=== PATIENT | female | born 1955 | race Caucasian/White ===

== ENCOUNTER 2022-04-30 15:22 | Inpatient (IN) ==
[2022-04-30] MEDS ORDERED: LORazepam 2 MG/1 ML VIAL ONE (15:37)
[2022-04-30] MEDS ORDERED: levETIRAcetam 1,500 MG in 0.9 % SODIUM CHLORIDE 100 ML IV STA (15:43)
[2022-04-30 15:58] LABS: iSTAT Creatinine 0.6 mg/dl (0.6-1.3); iSTAT Hemoglobin 12.9 g/dl (12.0-16.0); iSTAT Ionized Calcium 1.17 mmol/l (1.12-1.32); iSTAT Potassium 4.1 mmol/L (3.3-5.0)
[2022-04-30] MEDS ORDERED: SODIUM CHLORIDE 0.9% 1000ML 1,000 ML IV SCH (16:00)
[2022-04-30 16:27] LABS: Basophils # (auto) 0.01 K/uL (0-0.2); Basophils % (auto) 0.1 %; Eosinophils # (auto) 0.11 K/uL (0-0.5); Eosinophils % (auto) 1.5 %; Hematocrit (blood only) 39.7 % (37-47); Hemoglobin 13.3 g/dL (12.0-16.0); Immature Granulocytes # (auto) 0.03 K/uL (0.00-0.02); Immature Granulocytes % (auto) 0.4 %; Lymphocytes # (auto) 2.32 K/uL (1.2-3.4); Lymphocytes % (auto) 32.3 %; Mean Corpuscular Hemoglobin 33.8 pg (25-34); Mean Corpuscular Hgb Conc 33.5 g/dL (32-36); Mean Corpuscular Volume 100.8 fL (80-100); Mean Platelet Volume 9.7 fL (7.4-10.4); Monocytes # (auto) 0.56 K/uL (0.11-0.59); Monocytes % (auto) 7.8 %; Neutrophils # (auto) 4.15 K/uL (1.4-6.5); Neutrophils % (auto) 57.9 %; Platelet Count 224 K/uL (130-400); RDW Coefficient of Variation 13.2 % (11.5-14.5); RDW Standard Deviation 48.3 fL (36.4-46.3); Red Blood Count 3.94 M/uL (4.2-5.4); White Blood Count 7.18 K/uL (4.8-10.8)
--- NOTE | 2022-04-30 16:30 | CT Scan Report ---
CT head/brain wo con CLINICAL HISTORY: seizure, vp patient shunt, GBM resection Technique: Contiguous axial CT images of the head were acquired from the base of the skull to the guanako yenny without intravenous contrast administration. Images were viewed in brain, subdural and bone [facility]. Automated dose lowering techniques and/or adjustment according to patient size were utilized for this exam. Comparison: None available at the time of this dictation. Findings: The ventricles, basal cisterns, and cerebral sulci are normal. There is no acute intracranial hemorrh age or evidence of acute territorial infarction. Neither mass effect, shift of the midline structures , nor abnormal extra-axial fluid collections are shown. Postsurgical findings of glioblastoma resect ion are seen in the left frontal lobe with post craniotomy changes and encephalomalacia. A DOWEL SANDER OPERATOR shunt i s seen with the tip terminating in the left lateral ventricle. Imaged portions of the paranasal sinuses and mastoid air cells are clear. The orbits appear normal. There are no acute fractures of the calvaria or scalp swelling. Impression: No acute abnormality. No evidence of hydrocephalus in this patient with a DOWEL SANDER OPERATOR shunt in place. Postsurg ical changes of tumor resection are seen. ACT 112: Negative or not required by law. Electronically signed by: Chester Fontenot M.D. 04/30/2022 4:29 PM
[2022-04-30 16:31] LABS: Prothrombin Time 10.2 Seconds (9.0-12.0)
[2022-04-30 16:55] LABS: Alanine Aminotransferase 21 U/L (7-52); Albumin Globulin Ratio 1.5 (0.9-2); Albumin Level 4.1 gm/dl (3.4-5.0); Alkaline Phosphatase 64 U/L (34-104); Anion Gap 21 (3-11); Aspartate Aminotransferase 14 U/L (13-39); Bilirubin,Total 1.1 mg/dl (0.2-1.0); Blood Urea Nitrogen 16 mg/dl (6-23); Calcium 9.3 mg/dl (8.5-10.1); Carbon Dioxide 15 mmol/L (21-32); Chloride 106 mmol/L (98-107); Est GFR (African American) 88.4 ml/min; Est GFR (Non-African American) 76.3 ml/min; Globulin 2.7 gm/dl (2.5-4.0); Glucose 168 mg/dl (70-99(Fasting)); Magnesium 1.9 mg/dl (1.7-2.4); Sodium 142 mmol/L (136-145); Total Protein 6.8 gm/dl (6.0-8.3)
--- NOTE | 2022-04-30 17:38 | XRay Report ---
XR chest 1V portable CLINICAL HISTORY: Seizure. Evaluate cardiopulmonary status COMPARISON STUDY: No previous studies for comparison. TECHNIQUE: 1 view of the chest FINDINGS: Single frontal view of the chest demonstrates the cardiomediastinal silhouette to be within normal li mits. There is a decreased inspiratory effort with elevation of the hemidiaphragms and crowding of th e bronchovascular markings at the lung bases and centrally. The lungs are clear of alveolar opacities . There is no evidence for pleural effusion. There is no evidence for vascular congestion. There is n o acute osseous pathology. IMPRESSION: 1. . There is a decreased inspiratory effort with otherwise no acute chest disease. ACT 112: Negative or not required by law. Electronically signed by: Bk Tucker M.D. 04/30/2022 5:36 PM
--- NOTE | 2022-04-30 18:26 | History & Physical Report ---
Date of Service April 30, 2022 Assessment & Plan (1) Seizure: (2) Glioblastoma: (3) S/P MARKETING DATABASE ANALYST shunt: Plan: Patient is 66 y/o F with PMH HTN, GERD, depression, glioblastoma s/p craniotomy presented to ER with c/o seizure today with loss control of bowels. History of craniotomy for resection on 05/27/2021, subsequent MARKETING DATABASE ANALYST shunt on 06/21/2021 for hydrocephalus, recurrent tumor s/p craniotomy 04/07/[address] Ferraro at [facility]. Recurrent seizure in ER today. Initially unresponsive, now becoming more alert and is oriented to person. Pt c/o some BULLOCK for 2 days. No current BULLOCK No prior history of seizure. On Keppra 10 days after recent craniotomy on 04/07. No longer on Keppra. Denies any recent fever/chills CT scan: No acute abnormality. No evidence of hydrocephalus in this patient with a MARKETING DATABASE ANALYST shunt in place. Postsurgical changes of tumor resection are seen. ER physician spoke to patient's neurosurgeon - Dr Ferraro, who did not feel patient required transfer to tertiary center at this time. Recommended restarting Keppra. ER physician spoke to on-call neurology-Dr. Allen who had recommended Keppra 500 mg twice daily Seizure precautions Start Keppra 500 mg twice daily Ativan as needed seizure Patient passed bedside dysphagia screen Neurology consult (4) HTN (hypertension): Plan: Stable Continue amlodipine, carvedilol (5) Depression: Plan: Chronic Continue citalopram DVT Prophylaxis SCDs Full Code as per discussion with pt Follows with Ayaka Novak PA-C for routine care Pt was seen and care coordinated with Dr Zavala. See addendum History of Present Illness Chief Complaint: Seizure Primary Care Provider: Ayaka Novak PA-C Patient is 66 y/o F with PMH HTN, GERD, depression, glioblastoma s/p craniotomy presented to ER with c/o seizure. Limited history able to be obtained from patient currently. History obtained from daughters. Patient with history glioblastoma with history of craniotomy for resection on 05/27/2021, subsequent MARKETING DATABASE ANALYST shunt on 06/21/2021 for hydrocephalus, recurrent tumor s/p craniotomy 04/07/[address] Ferraro at [facility]. It is reported this morning patient was normal self. She went out with a friend for lunch. Friend had noted patient to have some word finding issues and progressed to increased confusion. On car ride home patient had seizure described as shaking for approximately 2 minutes and friend pulled over at [place] and patient transported to ER via EMS. Had loss of control of bowels. In ER it is reported patient had another seizure and she was unresponsive. Throughout ER course patient is becoming more alert and is oriented to person. Patient has been reporting some BULLOCK for 2 days. Denies any current BULLOCK. Patient currently knows she is in hospital but thinks it is [facility]. Patient's daughter reports patient with no prior history of seizure. She was on Keppra 10 days after recent craniotomy on 04/07/22. No longer on Keppra. Denies any recent fever/chills, N/V/D, abdominal pain. ER physician spoke to patient's neurosurgeon - Dr Ferraro, who did not feel patient required transfer to tertiary center at this time. Recommended restarting Keppra. ER physician spoke to on-call neurology-Dr. Allen who had recommended Keppra 500 mg twice daily. Allergies Allergy/AdvReac Type Severity Reaction Status Date / Time Penicillins Allergy Intermediate Hives Verified 04/30/22 15:57 amoxicillin [From Amoxil] Allergy Unknown UNKNOWN--PER Verified 04/30/22 15:57 GMG atorvastatin AdvReac Intermediate Muscle Pain Verified 04/30/22 15:57 Home Medications Medication Instructions Recorded Confirmed Type acetaminophen 325 mg tablet 650 mg PO DIRECTED PRN 04/30/22 04/30/22 History (Tylenol) amlodipine 2.5 mg tablet 2.5 mg PO DAILY 04/30/22 04/30/22 History carvedilol 6.25 mg tablet 6.25 mg PO BID 04/30/22 04/30/22 History citalopram 20 mg tablet 20 mg PO DAILY 04/30/22 04/30/22 History docusate sodium 100 mg capsule 100 mg PO BID PRN 04/30/22 04/30/22 History gabapentin 100 mg capsule 100 mg PO HS 04/30/22 04/30/22 History oxycodone 5 mg tablet 5 mg PO Q8H PRN 04/30/22 04/30/22 History Past Med/Surg History Medical History Depression Glioblastoma HTN (hypertension) Surgical History History of craniotomy craniotomy for resection on 05/27/2021 recurrent tumor s/p craniotomy 04/07/[address] Ferraro at [facility] History of hysterectomy S/P MARKETING DATABASE ANALYST shunt MARKETING DATABASE ANALYST shunt on 06/21/2021 for hydrocephalus Family History Brother Coronary heart disease Social History Smoking Status: Former smoker Tobacco Type: Cigarettes Cigarettes Per Day: 1/2 ppd; Hx Alcohol Use: Yes (1 drink a day) Hx Substance Use: No Preferred Language: Lao Review of Systems Review of Systems: Unobtainable due to cognitive status Physical Exam Physical Exam: PE per Dr Zavala Results & Data Results & Data ([facility]) Vital Signs (Past 12 Hours) Vital Signs Temp Pulse Pulse Resp BP BP Pulse Ox 04/30/22 17:30 79 20 147/84 H 98 04/30/22 17:15 82 22 123/83 04/30/22 17:07 97 04/30/22 17:00 84 20 110/79 93 04/30/22 16:45 85 18 142/70 H 93 04/30/22 16:38 87 19 126/76 92 04/30/22 16:30 89 18 141/74 H 94 04/30/22 16:27 91 H 21 132/86 94 04/30/22 16:26 88 22 94 04/30/22 16:11 99 04/30/22 16:00 87 19 132/82 97 04/30/22 15:46 91 H 23 135/96 99 04/30/22 15:35 37.0 C 92 H 23 177/95 H 95 Laboratory Results Short CBC 04/30/22 Range/Units 15:41 WBC 7.18 (4.8-10.8) K/uL Hgb 13.3 (12.0-16.0) g/dL Hct 39.7 (37-47) % Plt Count 224 (130-400) K/uL BMP 04/30/22 15:41 Sodium 142 Potassium 4.0 Chloride 106 Carbon Dioxide 15 L BUN 16 Creatinine 0.80 Glucose 168 H Calcium 9.3 Liver Function 04/30/22 Range/Units 15:41 Total Bilirubin 1.1 H (0.2-1.0) mg/dl AST 14 (13-39) U/L ALT 21 (7-52) U/L Alkaline Phosphatase 64 (34-104) U/L Albumin 4.1 (3.4-5.0) gm/dl Diagnostic Findings Head CT 04/30/22 15:57 CT head/brain wo con CLINICAL HISTORY: seizure, lift truck operator shunt, GBM resection Technique: Contiguous axial CT images of the head were acquired from the base of the skull to the vertex without intravenous contrast administration. Images were viewed in brain, subdural and bone windows. Automated dose lowering techniques and/or adjustment according to patient size were utilized for this exam. Comparison: None available at the time of this dictation. Findings: The ventricles, basal cisterns, and cerebral sulci are normal. There is no acute intracranial hemorrhage or evidence of acute territorial infarction. Neither mass effect, shift of the midline structures, nor abnormal extra-axial fluid collections are shown. Postsurgical findings of glioblastoma resection are seen in the left frontal lobe with post craniotomy changes and encephalomalacia. A MARKETING DATABASE ANALYST shunt is seen with the tip terminating in the left lateral ventricle. Imaged portions of the paranasal sinuses and mastoid air cells are clear. The orbits appear normal. There are no acute fractures of the calvaria or scalp swelling. Impression: No acute abnormality. No evidence of hydrocephalus in this patient with a MARKETING DATABASE ANALYST shunt in place. Postsurgical changes of tumor resection are seen. ACT 112: Negative or not required by law. Electronically signed by: Chester Fontenot M.D. 04/30/2022 4:29 PM Chest X-Ray 04/30/22 15:58 XR chest 1V portable CLINICAL HISTORY: Seizure. Evaluate cardiopulmonary status COMPARISON STUDY: No previous studies for comparison. TECHNIQUE: 1 view of the chest FINDINGS: Single frontal view of the chest demonstrates the cardiomediastinal silhouette to be within normal limits. There is a decreased inspiratory effort with elevation of the hemidiaphragms and crowding of the bronchovascular markings at the lung bases and centrally. The lungs are clear of alveolar opacities. There is no evidence for pleural effusion. There is no evidence for vascular congestion. There is no acute osseous pathology. IMPRESSION: 1. . There is a decreased inspiratory effort with otherwise no acute chest disease. ACT 112: Negative or not required by law. Electronically signed by: Bk Tucker M.D. 04/30/2022 5:36 PM Supervising Physician Co-Signing Physician Notes History and physical exam performed by me History notable for 66-year-old woman with history of hypertension, GERD, depression, glioblastoma status postcraniotomy who presented to the ER after seizure episode today. Had a craniotomy on 04/07/2022 was on Keppra for 10 days postprocedure. Was noted to have had word finding difficulty, confusion and a seizure episode today. Associated with bowel incontinence. Daughter reported she had reported some headache for the past day or 2. Patient currently alert and oriented to person, sluggish response, currently denies any headache symptoms On exam, General: Awake and alert, sluggish response but responds appropriately, Scar on frontal part of scalp. No erythema/tenderness Eyes: PERRL, conjunctivae normal, not pale, anicteric sclerae, EOM intact bilaterally ENMT: External ear and nose normal, oropharynx normal Neck: Normal visual inspection, normal ROM Respiratory: Normal respiratory effort, no respiratory distress, lungs clear to auscultation, no crackles and no wheezes Cardiovascular: RRR S1 S2 Gastrointestinal (Abdomen): Abdomen is not distended, soft, non-tender to palpation, no guarding, no palpable hepatosplenomegaly, normal bowel sounds Musculoskeletal: No pedal edema Neurologic: Alert and oriented to person, knows she is in a hospital but thinks it's [facility], not oriented to time, sluggish response, No focal weakness, sensation grossly intact Psychiatric: Euthymic affect Labs worsening notable for bicarb of 15, anion gap of 21, bilirubin of 1.1 CT head did not show any acute abnormality and no evidence of hydrocephalus and patient with MARKETING DATABASE ANALYST shunt in place. Altered mental status Seizure episode. Per daughters, she is responding better now though not back to baseline Likely post ictal statie ER physician had talked to neurosurgeon and was started on Keppra. Continue Keppra Neurology consult No headache, leukocytosis or fever to suggest meningitis at this time. Continue to monitor Get lactate Continue IVF Dysphagia screen and diet if passed Will likely need to stop driving for now until cleared by Neurology Agree with other plans as detailed by Cony Smith PA-C
--- NOTE | 2022-04-30 20:34 | Emergency Department Note ---
Impression & Plan Seizure, AMS (altered mental status), Glioblastoma, S/P WEB CONTENT WRITER shunt ED Provider Note INFORMANT: Patient ED PROVIDER(S): Liu Cardoso MD CHIEF COMPLAINT: AMS PLAN: Disposition: Admitted Condition: Good Outpatient prescription management: none Referral: None MEDICAL DECISION MAKING: Patient presented emergency department altered. She had a seizure witnessed as an outpatient. She had a seizure again here. She was given IV Ativan and loaded with IV Keppra. Patient seemed to stabilize with this. No additional seizure activity was noted. She started to open her eyes and would squeeze hands on command. The patient was sent for CT imaging which showed per surgical changes but nothing acute. Her laboratory testing was unremarkable. Patient's EEG was normal. The patient's mental status slowly improved. I reassessed her frequently and she improved each time The patient's daughter showed up. They did help add to the patient's history and treatment. I did consult with her neurosurgeon, . As the CT scan did not show any acute findings she felt it was reasonable for the patient to stay here for neurology evaluation and to restart her oral seizure medications. Patient performed. Daughters were updated and were in agreement. Consultation was made with the [facility] hospitalist service. Patient was evaluated in the ER for further management. I also discussed the case with Dr. Allen of [facility] neurology and he agreed restarting the patient's seizure medication and for monitoring. Triage Nursing notes reviewed and agree them. Vital Signs: reviewed and remarkable for no significant abnormalities Differential diagnosis: Infection, hypoglycemia, electrolyte abnormalities, overdose, toxicologic, ca rdiac sources, intracerebral event, neurologic, trauma, as well as other pathologies. Diagnostics interpreted by me: EC Lead ECG performed and revealed Normal sinus rhythm at 91, normal [place], QRS normal. No elevation or depression. No PACs or PVCs Cardiac Monitoring: Cardiac monitoring ordered by me: The patient was placed on continuous cardiac monitoring and observed. It revealed a normal sinus rhythm at 69 beats per minute without ectopy or evidence of dysrhythmia. Imaging studies: CT scan as above. I refer you to the EMR for further details. HPI: The patient is a 66 year old female who presents to the Emergency Room with altered mental status. The patient reportedly was having some confusion and difficulty with word finding. This is happened to her before she was diagnosed with a GBM. She had a resection done last year and then the patient had a revision done about [address] Ferraro to [facility]. This started a few hours ago. Patient seemed to get worse and her friend was taking her to the [facility] clinic. The patient had a generalized tonic-clonic seizure in the car. She was attended to by the office staff. EMS was summoned. The patient was brought to the emergency department. Shortly after arrival the patient had a second tonic-clonic seizure. She given prehospital. The history is limited secondary to the patient's altered mental status. ROS: See above HPI for pertinent positives & negatives. Limited secondary to altered mental status. PAST MEDICAL HISTORY:See Below , GBM PAST SURGICAL HISTORY:See Below, WEB CONTENT WRITER shunt FAMILY HISTORY:See Below SOCIAL HISTORY:See Below, retired HOME MEDICATIONS:See Below ALLERGIES:See Below VITALS:See Below PHYSICAL EXAMINATION: GENERAL: Somnolent age-appropriate appearing, in no distress HENT: Normocephalic, atraumatic. Surgical scar in the frontal scalp healing without signs of infection. Oropharynx unremarkable. EYES: Normal conjunctiva. Sclera non-icteric. PERRL NECK: Inspection normal. Non-tender. Supple. No nuchal rigidity. FROM. No masses. RESPIRATORY: Clear to auscultation. No wheezes. No rales. Normal respiratory effort. CARDIAC: Normal rate. Normal rhythm. No murmurs. No rubs. Extremities warm and well perfused. Pulses equal. No JVD. GI: Soft, non-distended. No tenderness to palpation. No rebound or guarding. No masses. RECTAL: Deferred. MUSCULOSKELETAL: Atraumatic. Chest examination reveals no tenderness. The back is symmetrical on inspection without obvious abnormality.No joint edema. LOWER EXTREMITIES: Calves are equal size bilaterally and non-tender. No edema. No discoloration. NEURO: Altered sensorium. Not following commands. SKIN: No rash or jaundice noted. CRITICAL CARE: I have personally spent greater than 35 minutes of critical care time in the direct management of this patient. This includes bedside care, interpretation of diagnostic studies, and testing, discussion with consultants, patient, and family members, and other required patient management activities. These minutes are in excess of all separately billable procedures. Liu Cardoso MD Past Med/Surg History Medical History Depression Glioblastoma HTN (hypertension) Surgical History History of craniotomy craniotomy for resection on 05/27/2021 recurrent tumor s/p craniotomy 04/07/[address]aro [address] [facility] History of hysterectomy S/P WEB CONTENT WRITER shunt WEB CONTENT WRITER shunt on 06/21/2021 for hydrocephalus Family History Brother Coronary heart disease Social History Smoking Status: Former smoker Tobacco Type: Cigarettes Cigarettes Per Day: 1/2 ppd; Hx Alcohol Use: Yes (1 drink a day) Hx Substance Use: No Preferred Language: Cymro Allergies Allergies Allergy/AdvReac Type Severity Reaction Status Date / Time Penicillins Allergy Intermediate Hives Verified 04/30/22 15:57 amoxicillin [From Amoxil] Allergy Unknown UNKNOWN--PER Verified 04/30/22 15:57 GMG atorvastatin AdvReac Intermediate Muscle Pain Verified 04/30/22 15:57 Home Meds Home Medications Medication Instructions Recorded Confirmed acetaminophen 325 mg tablet 650 mg PO DIRECTED PRN 04/30/22 04/30/22 (Tylenol) amlodipine 2.5 mg tablet 2.5 mg PO DAILY 04/30/22 04/30/22 carvedilol 6.25 mg tablet 6.25 mg PO BID 04/30/22 04/30/22 citalopram 20 mg tablet 20 mg PO DAILY 04/30/22 04/30/22 docusate sodium 100 mg capsule 100 mg PO BID PRN 04/30/22 04/30/22 gabapentin 100 mg capsule 100 mg PO HS 04/30/22 04/30/22 oxycodone 5 mg tablet 5 mg PO Q8H PRN 04/30/22 04/30/22 Results & Data (ED) Vital Signs Vital Signs - 24 hr 04/30/22 15:35 04/30/22 15:46 04/30/22 16:00 Temperature 37.0 C Temperature Source Oral Pulse Rate 92 H 87 Pulse Rate [Apical] 91 H Pulse Rate from SpO2 Sensor 87 Respiratory Rate 23 23 19 Blood Pressure 177/95 H 132/82 Blood Pressure [Right Arm] 135/96 Blood Pressure Mean 122 98 Blood Pressure Mean [Right Arm] 109 Pulse Oximetry 95 99 97 Oxygen Delivery Method Room Air Nasal Cannula Oxygen Flow Rate 4 3 Sepsis New/Unexplained Change in Mental Status No Sepsis Action Taken by Nursing No Action Required 04/30/22 16:11 04/30/22 16:26 04/30/22 16:27 Temperature Temperature Source Pulse Rate 88 91 H Pulse Rate [Apical] Pulse Rate from SpO2 Sensor 89 89 Respiratory Rate 22 21 Blood Pressure 132/86 Blood Pressure [Right Arm] Blood Pressure Mean 101 Blood Pressure Mean [Right Arm] Pulse Oximetry 99 94 94 Oxygen Delivery Method Nasal Cannula Oxygen Flow Rate Sepsis New/Unexplained Change in Mental Status Sepsis Action Taken by Nursing 04/30/22 16:30 04/30/22 16:38 04/30/22 16:45 Temperature Temperature Source Pulse Rate 89 87 85 Pulse Rate [Apical] Pulse Rate from SpO2 Sensor 89 89 86 Respiratory Rate 18 19 18 Blood Pressure 141/74 H 126/76 142/70 H Blood Pressure [Right Arm] Blood Pressure Mean 96 92 94 Blood Pressure Mean [Right Arm] Pulse Oximetry 94 92 93 Oxygen Delivery Method Oxygen Flow Rate Sepsis New/Unexplained Change in Mental Status Sepsis Action Taken by Nursing 04/30/22 17:00 04/30/22 17:07 04/30/22 17:15 Temperature Temperature Source Pulse Rate 84 82 Pulse Rate [Apical] Pulse Rate from SpO2 Sensor 84 83 Respiratory Rate 20 22 Blood Pressure 110/79 123/83 Blood Pressure [Right Arm] Blood Pressure Mean 89 96 Blood Pressure Mean [Right Arm] Pulse Oximetry 93 97 Oxygen Delivery Method Nasal Cannula Oxygen Flow Rate 3 Sepsis New/Unexplained Change in Mental Status Sepsis Action Taken by Nursing 04/30/22 17:30 04/30/22 19:00 04/30/22 20:30 Temperature Temperature Source Pulse Rate 79 69 Pulse Rate [Apical] 79 Pulse Rate from SpO2 Sensor 80 Respiratory Rate 20 19 17 Blood Pressure 147/84 H 175/59 H Blood Pressure [Right Arm] 139/81 Blood Pressure Mean 105 Blood Pressure Mean [Right Arm] 100 Pulse Oximetry 98 98 98 Oxygen Delivery Method Nasal Cannula Room Air Room Air Oxygen Flow Rate 3 Sepsis New/Unexplained Change in Mental Status Sepsis Action Taken by Nursing Laboratory Data Result diagrams: 04/30/22 15:41 04/30/22 15:41 Lab Results 04/30/22 04/30/22 04/30/22 Range/Units 15:34 15:41 15:41 WBC (4.8-10.8) K/uL RBC (4.2-5.4) M/uL Hgb (12.0-16.0) g/dL POC Hgb (12.0-16.0) g/dl Hct (37-47) % POC Hct (37-47) % MCV (80-100) fL MCH (25-34) pg MCHC (32-36) g/dL RDW Std Deviation (36.4-46.3) fL RDW Coeff of Raoul (11.5-14.5) % Plt Count (130-400) K/uL MPV (7.4-10.4) fL Immature Gran % (Auto) % Neut % (Auto) % Lymph % (Auto) % [place] % (Auto) % Eos % (Auto) % Baso % (Auto) % Neut # (Auto) (1.4-6.5) K/uL Lymph # (Auto) (1.2-3.4) K/uL [place] # (Auto) (0.11-0.59) K/uL Eos # (Auto) (0-0.5) K/uL Baso # (Auto) (0-0.2) K/uL Immature Gran # (Auto) (0.00-0.02) K/uL PT 10.2 (9.0-12.0) Seconds INR 1.0 (0.9-1.1) POC Sodium (135-144) mmol/L Sodium 142 (136-145) mmol/L POC Potassium (3.3-5.0) mmol/L Potassium 4.0 (3.5-5.1) mmol/L POC Chloride (101-112) mmol/L Chloride 106 (98-107) mmol/L Carbon Dioxide 15 L (21-32) mmol/L POC Total CO2 (24-31) mmol/L Anion Gap 21 H (3-11) POC Anion Gap (16-25) mmol/L POC BUN (7-18) mg/dl BUN 16 (6-23) mg/dl Creatinine 0.80 (0.6-1.2) mg/dl POC Creatinine (0.6-1.3) mg/dl Est Cr Clr Drug Dosing Not Reportable Est GFR ( Amer) 88.4 ml/min Est GFR (Non-Af Amer) 76.3 ml/min BUN/Creatinine Ratio 20.0 (10-20) Glucose 168 H (70-99(Fasting)) mg/dl POC Glucose 169 H (70-99) mg/dl POC Glucose (other) (70-99) mg/dl Calcium 9.3 (8.5-10.1) mg/dl POC Ioniz Calcium Francia (1.12-1.32) mmol/l Magnesium 1.9 (1.7-2.4) mg/dl Total Bilirubin 1.1 H (0.2-1.0) mg/dl AST 14 (13-39) U/L ALT 21 (7-52) U/L Alkaline Phosphatase 64 (34-104) U/L Troponin I High Sens 8.0 (0-14) pg/ml Total Protein 6.8 (6.0-8.3) gm/dl Albumin 4.1 (3.4-5.0) gm/dl Globulin 2.7 (2.5-4.0) gm/dl Albumin/Globulin Ratio 1.5 (0.9-2) TSH (0.300-4.500) uIu/ml SARS-CoV-2, RNA, NAAT (NEGATIVE) 04/30/22 04/30/22 04/30/22 Range/Units 15:41 15:41 15:46 WBC 7.18 (4.8-10.8) K/uL RBC 3.94 L (4.2-5.4) M/uL Hgb 13.3 (12.0-16.0) g/dL POC Hgb 12.9 (12.0-16.0) g/dl Hct 39.7 (37-47) % POC Hct 38 (37-47) % MCV 100.8 H (80-100) fL MCH 33.8 (25-34) pg MCHC 33.5 (32-36) g/dL RDW Std Deviation 48.3 H (36.4-46.3) fL RDW Coeff of Raoul 13.2 (11.5-14.5) % Plt Count 224 (130-400) K/uL MPV 9.7 (7.4-10.4) fL Immature Gran % (Auto) 0.4 % Neut % (Auto) 57.9 % Lymph % (Auto) 32.3 % [place] % (Auto) 7.8 % Eos % (Auto) 1.5 % Baso % (Auto) 0.1 % Neut # (Auto) 4.15 (1.4-6.5) K/uL Lymph # (Auto) 2.32 (1.2-3.4) K/uL [place] # (Auto) 0.56 (0.11-0.59) K/uL Eos # (Auto) 0.11 (0-0.5) K/uL Baso # (Auto) 0.01 (0-0.2) K/uL Immature Gran # (Auto) 0.03 H (0.00-0.02) K/uL PT (9.0-12.0) Seconds INR (0.9-1.1) POC Sodium 142 (135-144) mmol/L Sodium (136-145) mmol/L POC Potassium 4.1 (3.3-5.0) mmol/L Potassium (3.5-5.1) mmol/L POC Chloride 109 (101-112) mmol/L Chloride (98-107) mmol/L Carbon Dioxide (21-32) mmol/L POC Total CO2 18 L (24-31) mmol/L Anion Gap (3-11) POC Anion Gap 20.0 (16-25) mmol/L POC BUN 15 (7-18) mg/dl BUN (6-23) mg/dl Creatinine (0.6-1.2) mg/dl POC Creatinine 0.6 (0.6-1.3) mg/dl Est Cr Clr Drug Dosing Est GFR ( Amer) ml/min Est GFR (Non-Af Amer) ml/min BUN/Creatinine Ratio (10-20) Glucose (70-99(Fasting)) mg/dl POC Glucose (70-99) mg/dl POC Glucose (other) 175 H (70-99) mg/dl Calcium (8.5-10.1) mg/dl POC Ioniz Calcium Francia 1.17 (1.12-1.32) mmol/l Magnesium (1.7-2.4) mg/dl Total Bilirubin (0.2-1.0) mg/dl AST (13-39) U/L ALT (7-52) U/L Alkaline Phosphatase (34-104) U/L Troponin I High Sens (0-14) pg/ml Total Protein (6.0-8.3) gm/dl Albumin (3.4-5.0) gm/dl Globulin (2.5-4.0) gm/dl Albumin/Globulin Ratio (0.9-2) TSH 1.807 (0.300-4.500) uIu/ml SARS-CoV-2, RNA, NAAT (NEGATIVE) 04/30/22 Range/Units 18:34 WBC (4.8-10.8) K/uL RBC (4.2-5.4) M/uL Hgb (12.0-16.0) g/dL POC Hgb (12.0-16.0) g/dl Hct (37-47) % POC Hct (37-47) % MCV (80-100) fL MCH (25-34) pg MCHC (32-36) g/dL RDW Std Deviation (36.4-46.3) fL RDW Coeff of Raoul (11.5-14.5) % Plt Count (130-400) K/uL MPV (7.4-10.4) fL Immature Gran % (Auto) % Neut % (Auto) % Lymph % (Auto) % [place] % (Auto) % Eos % (Auto) % Baso % (Auto) % Neut # (Auto) (1.4-6.5) K/uL Lymph # (Auto) (1.2-3.4) K/uL [place] # (Auto) (0.11-0.59) K/uL Eos # (Auto) (0-0.5) K/uL Baso # (Auto) (0-0.2) K/uL Immature Gran # (Auto) (0.00-0.02) K/uL PT (9.0-12.0) Seconds INR (0.9-1.1) POC Sodium (135-144) mmol/L Sodium (136-145) mmol/L POC Potassium (3.3-5.0) mmol/L Potassium (3.5-5.1) mmol/L POC Chloride (101-112) mmol/L Chloride (98-107) mmol/L Carbon Dioxide (21-32) mmol/L POC Total CO2 (24-31) mmol/L Anion Gap (3-11) POC Anion Gap (16-25) mmol/L POC BUN (7-18) mg/dl BUN (6-23) mg/dl Creatinine (0.6-1.2) mg/dl POC Creatinine (0.6-1.3) mg/dl Est Cr Clr Drug Dosing Est GFR ( Amer) ml/min Est GFR (Non-Af Amer) ml/min BUN/Creatinine Ratio (10-20) Glucose (70-99(Fasting)) mg/dl POC Glucose (70-99) mg/dl POC Glucose (other) (70-99) mg/dl Calcium (8.5-10.1) mg/dl POC Ioniz Calcium Francia (1.12-1.32) mmol/l Magnesium (1.7-2.4) mg/dl Total Bilirubin (0.2-1.0) mg/dl AST (13-39) U/L ALT (7-52) U/L Alkaline Phosphatase (34-104) U/L Troponin I High Sens (0-14) pg/ml Total Protein (6.0-8.3) gm/dl Albumin (3.4-5.0) gm/dl Globulin (2.5-4.0) gm/dl Albumin/Globulin Ratio (0.9-2) TSH (0.300-4.500) uIu/ml SARS-CoV-2, RNA, NAAT NEGATIVE (NEGATIVE) Administered Medications Sodium Chloride (Nss 1000ml) 1,000 mls @ 125 mls/hr IV .Q8H ALDA Stop: 04/30/22 23:59 Last Admin: 04/30/22 16:07 Dose: 125 mls/hr Documented by: [id number] Discontinued Medications Levetiracetam 1,500 mg/ Sodium (Chloride) 115 mls @ 440 mls/hr IV NOW STA Stop: 04/30/22 15:58 Last Infusion: 04/30/22 16:20 Dose: 0 mls/hr Documented by: [id number] Admin: 04/30/22 16:04 Dose: 440 mls/hr Documented by: [id number] Lorazepam (Lorazepam 2 Mg/1 Ml Vial) Confirm Administered Dose 1 mg .ROUTE .[facility] [employer] ONE Stop: 04/30/22 15:38 Last Admin: 04/30/22 15:46 Dose: 1 mg Documented by: [id number] Imaging Data Radiologist's Impression: Head CT 04/30/22 15:57 CT head/brain wo con CLINICAL HISTORY: seizure, vp of technology shunt, GBM resection Technique: Contiguous axial CT images of the head were acquired from the base of the skull to the vertex without intravenous contrast administration. Images were viewed in brain, subdural and bone windows. Automated dose lowering techniques and/or adjustment according to patient size were utilized for this exam. Comparison: None available at the time of this dictation. Findings: The ventricles, basal cisterns, and cerebral sulci are normal. There is no acute intracranial hemorrhage or evidence of acute territorial infarction. Neither mass effect, shift of the midline structures, nor abnormal extra-axial fluid collections are shown. Postsurgical findings of glioblastoma resection are seen in the left frontal lobe with post craniotomy changes and encephalomalacia. A WEB CONTENT WRITER shunt is seen with the tip terminating in the left lateral ventricle. Imaged portions of the paranasal sinuses and mastoid air cells are clear. The orbits appear normal. There are no acute fractures of the calvaria or scalp swelling. Impression: No acute abnormality. No evidence of hydrocephalus in this patient with a WEB CONTENT WRITER shunt in place. Postsurgical changes of tumor resection are seen. ACT 112: Negative or not required by law. Electronically signed by: Chester Fontenot M.D. 04/30/2022 4:29 PM Chest X-Ray 04/30/22 15:58 XR chest 1V portable CLINICAL HISTORY: Seizure. Evaluate cardiopulmonary status COMPARISON STUDY: No previous studies for comparison. TECHNIQUE: 1 view of the chest FINDINGS: Single frontal view of the chest demonstrates the cardiomediastinal silhouette to be within normal limits. There is a decreased inspiratory effort with elevation of the hemidiaphragms and crowding of the bronchovascular markings at the lung bases and centrally. The lungs are clear of alveolar opacities. There is no evidence for pleural effusion. There is no evidence for vascular congestion. There is no acute osseous pathology. IMPRESSION: 1. . There is a decreased inspiratory effort with otherwise no acute chest disease. ACT 112: Negative or not required by law. Electronically signed by: Bk Tucker M.D. 04/30/2022 5:36 PM Discharge Plan Visit Data Chief Complaint: Unresponsive Stated Complaint: NEURO SX, PERIOD OF UNRESP. ED Provider: Liu Cardoso Discharge Problem: Seizure, AMS (altered mental status), Glioblastoma, S/P WEB CONTENT WRITER shunt Patient Disposition: Admitted As Inpatient Discharge Instructions Interventions: ED Discharge Assessment Last Done: 04/30/22 20:30 Forms Stand Alone Forms: [facility] Prescriptions Prescriptions: No Action acetaminophen [Tylenol] 325 mg Tablet 650 mg PO DIRECTED PRN (Reason: Pain) RF: 0 carvedilol 6.25 mg tablet 6.25 mg PO BID RF: 0 amlodipine 2.5 mg tablet 2.5 mg PO DAILY RF: 0 citalopram 20 mg tablet 20 mg PO DAILY RF: 0 docusate sodium 100 mg Capsule 100 mg PO BID PRN (Reason: Constipation) RF: 0 gabapentin 100 mg capsule 100 mg PO HS RF: 0 oxycodone 5 mg tablet 5 mg PO Q8H PRN (Reason: Pain) RF: 0 Referrals Referrals: Ayaka Novak PA-C [Primary Care Provider] -
[2022-04-30] MEDS ORDERED: DOCUSATE SODIUM 100 MG CAP PO PRN (21:05)
[2022-04-30] MEDS ORDERED: ACETAMINOPHEN 325 MG TAB PO PRN (21:05)
[2022-04-30] MEDS ORDERED: ONDANSETRON INJ 2 MG/ML 2 ML VIAL IV PRN (21:05)
[2022-04-30] MEDS ORDERED: POLYETHYLENE (MIRALAX) 17 GM PACK PO PRN (21:05)
[2022-04-30] MEDS ORDERED: LORazepam 1 MG in SYRINGE 0.5 ML IV PRN (21:05)
[2022-04-30] MEDS: carvediloL 6.25 MG TAB PO SCH (22:19)
[2022-04-30] MEDS: GABAPENTIN 100 MG CAP PO SCH (22:19)
[2022-05-01 06:56] LABS: Hematocrit (blood only) 31.5 % (37-47); Hemoglobin 10.8 g/dL (12.0-16.0); Mean Corpuscular Hgb Conc 34.3 g/dL (32-36); Mean Corpuscular Volume 99.1 fL (80-100); Mean Platelet Volume 9.1 fL (7.4-10.4); Platelet Count 145 K/uL (130-400); RDW Coefficient of Variation 13.4 % (11.5-14.5); RDW Standard Deviation 47.7 fL (36.4-46.3); Red Blood Count 3.18 M/uL (4.2-5.4); White Blood Count 3.97 K/uL (4.8-10.8)
[2022-05-01 07:50] LABS: Creatinine Clr Calc Pharmacy 92.5 ml/min; Est GFR (African American) 112.5 ml/min; Est GFR (Non-African American) 97.1 ml/min; Potassium 3.4 mmol/L (3.5-5.1)
[2022-05-01] MEDS: CITALOPRAM 20 MG TAB PO SCH (08:48)
[2022-05-01] MEDS: levETIRAcetam 500 MG TAB PO SCH ×2 (08:48→21:12)
[2022-05-01] MEDS: amLODIPine BESYLATE 5 MG TAB PO SCH (08:48)
[2022-05-01] MEDS ORDERED: POTASSIUM CHLORIDE CRTAB 20 MEQ TABCR PO STA (10:11)
--- NOTE | 2022-05-01 10:13 | Electrocardiogram Report ---
Test Reason : Blood Pressure : / mmHG Vent. Rate : 091 BPM Atrial Rate : 091 BPM P-R Int : 154 ms QRS Dur : 082 ms QT Int : 362 ms P-R-T Axes : 040 020 046 degrees QTc Int : 445 ms Normal sinus rhythm Normal ECG No previous ECGs available Confirmed by Benjamín Tapia ([id number]) on 05/01/2022 10:12:47 AM Referred By: REFERRED SELF Confirmed By:Benjamín Tapia
[2022-05-01] MEDS: carvediloL 6.25 MG TAB PO SCH ×2 (11:08→21:11)
--- NOTE | 2022-05-01 14:33 | Communication Note ---
Date of Service: May 01, 2022 Melinda is 66 years old and was admitted to the hospital last night after having a witnessed seizure likely a focal onset left hemisphere with confusion and s everal days of headaches prior to the actual seizure itself I refer the reader to the detailed history from the emergency room and the admitting physicians Neurology has been consulted basically to review the case and make recommendations regarding anticonvulsant therapy History is pertinent for development of a glioblastoma about 18 months ago with subsequent resection of the tumor in May 2021 then placement of a BANKING ATTORNEY shunt in June because of hydrocephalus and a repeat tumor resection in March of this year done and [place] by a [facility] neurosurgeon. Following that procedure she was placed on a brief course of Keppra. The dose is based on the history I can glean 500 mg twice a day but was not maintained for more than several weeks and she has been off the medication for 1 to 2 weeks at this point Her neurosurgeon was contacted by our emergency room physicians. The CT scan was reviewed which did not show any evidence for tumor recurrence or increased hydrocephalus and a transfer to [place] was not felt to be necessary. She was appropriately loaded with Keppra and is now on a dose of 500 mg twice a day Her daughter who is with her in the room feels she is getting close to her baseline she still has a little confusion and some word finding issues but some of this is going to be expected based on the location of the tumor but some of this may be still postictal On my examination her blood pressure is 144/73 pulse 68 respirations are 20 she is afebrile has an O2 saturation 93% she is awake alert has some word finding deficits perseverates a bit there is no neologisms no paraphasias but she is somewhat vague and confused about her medications. There may be a very slight right facial asymmetry, craniotomy scar is well-healed on the left, I do not see any gross drift or pronation sign or hemiparesis and I certainly see no evidence for ongoing focal motor activity of seizure-like nature At this point I concur with plans to discharge her on 500 mg Keppra twice a day. She has an upcoming appointment with her neurosurgeon and with her oncologist at [facility] I would suggest that a Keppra level be obtained within about 10 days just to see if it is within the wide therapeutic range and if so at what point in the range it lies. Upward adjustments are going to be based on how she does clinically and where the levels are to some degree I did discuss the potential side effects of Keppra of increased irritability lethargy and depression but again will not be following the patient so a lot of this is going to need to be discussed by the neurosurgery team and the oncology team in the [facility] area At this point I would suggest she be kept till tomorrow to establish whether or not she is going to have any breakthrough seizure activity and whether she is going to tolerate the current dose of Keppra which I suspect she will and if she is well then I think she could be discharged home on the 500 mg twice a day No follow-up will be necessary here in [place] as her care has been rendered at [facility] and its affiliates on the [facility] and to be continued there Liu Allen MD The above note was generated utilizing voice recognition technology and may have spelling errors punctuation errors pronoun usage errors and syntax errors
--- NOTE | 2022-05-01 17:23 | Hospitalist Progress Note ---
Date of Service May 01, 2022 Assessment & Plan (1) Seizure: Plan: 66 y/o F with PMH of HTN, GERD, depression, glioblastoma s/p craniotomy presented to ER with c/o seizure today with loss control of bowels. 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 Ferraro at [facility]. Recurrent seizure in ER on the day of arrival. Initially unresponsive. 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 No current BULLOCK (1) Seizure: likely focal onset (2) Glioblastoma: (3) S/P DAIRY FARM SUPERVISOR shunt: No prior history of seizure. On Keppra 10 days after recent craniotomy on 04/07/22. No longer on Keppra. Denies any recent fever/chills Admitting CT scan: No acute abnormality. No evidence of hydrocephalus in this patient with a DAIRY FARM SUPERVISOR shunt in place. Postsurgical changes of tumor resection are seen. ER physician spoke to patient's neurosurgeon - Dr Ferraro, who did not feel patient required transfer to tertiary center at this time. Recommended restarting Keppra. ER physician spoke to on-call neurology-Dr. Allen who had recommended Keppra 500 mg twice daily Seizure precautions Started Keppra 500 mg twice daily Ativan as needed seizure Patient passed bedside dysphagia screen Neurology evaluated, observe overnight, likely DC zeinab. F/u w/ [place] neuro as OP. Pt reports headache improving, is getting closer to her baseline. (4) HTN (hypertension): Plan: Stable Continue amlodipine, carvedilol (5) Depression: Plan: Chronic Continue citalopram DVT Prophylaxis SCDs Full Code Follows with Ayaka Novak PA-C for routine care. PT/OT, CM to assist w/ DC planning, likely DC zeinab. Admission and Anticipated Discharge Date Admission Date: April 30, 2022 Subjective Patient seen and examined at bedside as a follow-up of witnessed seizure, likely focal onset left hemisphere with confusion and history of glioblastoma and s/p DAIRY FARM SUPERVISOR shunt. She was lying in bed, on room air, NAD, no new acute events overnight. Patient reports eating okay, patient denies headache or dizziness or chest pain or palpitation or belly pain. Patient reports loose stool at baseline once a day. Pt's Dtr at bedside. Physical Exam Physical Exam: GENERAL: Alert and oriented x3. NAD, on RA. HEENT: No pallor, no icterus. Pupils equal, round and reactive to light. Oral mucosa moist. Well healed surgical scar anterior to coronal plane in frontal area. NECK: No JVD, no neck masses. HEART: S1 and S2 heard. Regular rate and rhythm. No murmur, no gallop. RESPIRATORY SYSTEM: Normal AP diameter. No accessory muscle use. No wheezing, no crackles. ABDOMEN: Soft, bowel sounds present, nontender, no distention. CENTRAL NERVOUS SYSTEM: No facial droop. Speech is clear. Obeys simple commands. Moves extremities. Word finding difficulty - some. Slow reaction time. EXTREMITIES: No edema, no erythema seen. Results & Data Results & Data ([facility]) Vital Signs (Past 12 Hours) Vital Signs Temp Pulse Pulse Resp BP Pulse Ox 05/01/22 16:25 36.9 C 65 19 124/78 95 05/01/22 12:28 36.4 C L 68 20 144/73 H 93 05/01/22 11:53 65 05/01/22 07:39 36.6 C 64 17 151/81 H 95
[2022-05-01] MEDS: GABAPENTIN 100 MG CAP PO SCH (21:12)
[2022-05-01 21:41] LABS: Appearance Urine Clear (Clear); Bacteria Urine Automated 4+ (Negative); Bilirubin Urine Negative (Negative); Blood Urine 2+ (Negative); Color Urine Yellow; Glucose Urine UA Negative (Negative); Ketones Urine Negative (Negative); Leukocyte Esterase Urine 1+ (Negative); Nitrite Urine Positive (Negative); Protein Urine Negative (Negative); Specific Gravity Urine 1.019 (1.000-1.030); Urobilinogen Urine Negative (Negative); WBC Urine Automated >30 /hpf (0-5); pH Urine 6.5 (4.5-7.5)
[2022-05-02] MEDS ORDERED: cefTRIAXone SODIUM 1,000 MG in DEXTROSE 5% 50 ML IV SCH (01:00)
[2022-05-02 07:28] LABS: Hematocrit (blood only) 33.5 % (37-47); Hemoglobin 11.2 g/dL (12.0-16.0); Mean Corpuscular Hemoglobin 33.6 pg (25-34); Mean Corpuscular Hgb Conc 33.4 g/dL (32-36); Mean Corpuscular Volume 100.6 fL (80-100); Mean Platelet Volume 9.4 fL (7.4-10.4); Platelet Count 174 K/uL (130-400); RDW Coefficient of Variation 13.5 % (11.5-14.5); RDW Standard Deviation 48.9 fL (36.4-46.3); Red Blood Count 3.33 M/uL (4.2-5.4)
[2022-05-02 08:01] LABS: Calcium 7.9 mg/dl (8.5-10.1); Creatinine Clr Calc Pharmacy 85.7 ml/min; Est GFR (African American) 109.9 ml/min; Est GFR (Non-African American) 94.8 ml/min; Phosphorus 3.2 mg/dl (2.5-4.9); Potassium 3.7 mmol/L (3.5-5.1)
[2022-05-02] MEDS: levETIRAcetam 500 MG TAB PO SCH (08:22)
[2022-05-02] MEDS: amLODIPine BESYLATE 5 MG TAB PO SCH (08:23)
[2022-05-02] MEDS: carvediloL 6.25 MG TAB PO SCH (08:23)
[2022-05-02] MEDS: CITALOPRAM 20 MG TAB PO SCH (08:23)
--- NOTE | 2022-05-02 12:26 | Discharge Summary ---
Date of Service May 02, 2022 Admission HPI Per Admitting Provider Patient is 66 y/o F with PMH HTN, GERD, depression, glioblastoma s/p craniotomy presented to ER with c/o seizure. Limited history able to be obtained from patient currently. History obtained from daughters. Patient with history glioblastoma with history of craniotomy for resection on 05/27/2021, subsequent MINE CAPTAIN shunt on 06/21/2021 for hydrocephalus, recurrent tumor s/p craniotomy 04/07/[address] Ferraro at [facility]. It is reported this morning patient was normal self. She went out with a friend for lunch. Friend had noted patient to have some word finding issues and progressed to increased confusion. On car ride home patient had seizure described as shaking for approximately 2 minutes and friend pulled over at [place] and patient transported to ER via EMS. Had loss of control of bowels. In ER it is reported patient had another seizure and she was unresponsive. Throughout ER course patient is becoming more alert and is oriented to person. Patient has been reporting some BULLOCK for 2 days. Denies any current BULLOCK. Patient currently knows she is in hospital but thinks it is [facility]. Patient's daughter reports patient with no prior history of seizure. She was on Keppra 10 days after recent craniotomy on 04/07/22. No longer on Keppra. Denies any recent fever/chills, N/V/D, abdominal pain. ER physician spoke to patient's neurosurgeon - Dr Ferraro, who did not feel patient required transfer to tertiary center at this time. Recommended restarting Keppra. ER physician spoke to on-call neurology-Dr. Allen who had recommended Keppra 500 mg twice daily. Admission Exam Per Admitting Provider General: Awake and alert, sluggish response but responds appropriately, Scar on fron derrell part of scalp. No erythema/tenderness Eyes: PERRL, conjunctivae normal, not pale, anicteric sclerae, EOM intact bilaterally ENMT: External ear and nose normal, oropharynx normal Neck: Normal visual inspection, normal ROM Respiratory: Normal respiratory effort, no respiratory distress, lungs clear to auscultation, no crackles and no wheezes Cardiovascular: RRR S1 S2 Gastrointestinal (Abdomen): Abdomen is not distended, soft, non-tender to palpation, no guarding, no palpable hepatosplenomegaly, normal bowel sounds Musculoskeletal: No pedal edema Neurologic: Alert and oriented to person, knows she is in a hospital but thinks it's [facility], not oriented to time, sluggish response, No focal weakness, sensation grossly intact Psychiatric: Euthymic affect Principal Diagnosis Likely focal seizure Status post MINE CAPTAIN shunt History of glioblastoma status postsurgery UTI Discharge Exam GENERAL: Alert and oriented x3. NAD, on RA. HEENT: No pallor, no icterus. Pupils equal, round and reactive to light. Oral mucosa moist. Well healed surgical scar anterior to coronal plane in frontal area. NECK: No JVD, no neck masses. HEART: S1 and S2 heard. Regular rate and rhythm. No murmur, no gallop. RESPIRATORY SYSTEM: Normal AP diameter. No accessory muscle use. No wheezing, no crackles. ABDOMEN: Soft, bowel sounds present, nontender, no distention. CENTRAL NERVOUS SYSTEM: No facial droop. Speech is clear. Obeys simple com mands. Moves extremities. Word finding difficulty - some. Slow reaction time. EXTREMITIES: No edema, no erythema seen. Discharge Data Allergies Allergy/AdvReac Type Severity Reaction Status Date / Time Penicillins Allergy Intermediate Hives Verified 04/30/22 15:57 amoxicillin [From Amoxil] Allergy Unknown UNKNOWN--PER Verified 04/30/22 15:57 GMG atorvastatin AdvReac Intermediate Muscle Pain Verified 04/30/22 15:57 Consultations 04/30/22 18:23 ED Decision to Admit Stat 04/30/22 21:05 Consult Neurology Routine Ordered Studies 04/30/22 15:57 CT head/brain wo con Stat Hospital Course (1) Seizure: 66 y/o F with PMH of HTN, GERD, depression, glioblastoma s/p craniotomy presented to ER with c/o seizure today with loss control of bowels. History of craniotomy for resection on 05/27/2021, subsequent MINE CAPTAIN shunt on 06/21/2021 for hydrocephalus, recurrent tumor s/p craniotomy 04/07/[address] Ferraro at [facility]. Recurrent seizure in ER on the day of arrival. Initially unresponsive. 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 No current BULLOCK. She was managed for the following: (1) Seizure: likely focal onset (2) Glioblastoma: (3) S/P MINE CAPTAIN shunt: No prior history of seizure. On Keppra 10 days after recent craniotomy on 04/07/22. No longer on Keppra. Denies any recent fever/chills Admitting CT scan: No acute abnormality. No evidence of hydrocephalus in this patient with a MINE CAPTAIN shunt in place. Postsurgical changes of tumor resection are seen. ER physician spoke to patient's neurosurgeon - Dr Ferraro, who did not feel patient required transfer to tertiary center at this time. Recommended restarting Keppra. ER physician spoke to on-call neurology-Dr. Allen who had recommended Keppra 500 mg twice daily Seizure precautions Started Keppra 500 mg twice daily 05/01, to be continued upon DC. Ativan as needed seizure - required none prn ativan. Patient passed bedside dysphagia screen Neurology evaluated, observe overnight, likely DC zeinab. F/u w/ [place] neuro as OP. --> no further seizure activity. RN denied new events overnight and in AM. Pt reports no headache, Pt feels better and reports being at baseline. #. UTI: rocephing 05/02, nitrofurantoin for 5 day upon DC. (4) HTN (hypertension): Plan: Stable Continue amlodipine, carvedilol (5) Depression: Plan: Chronic Continue citalopram DVT Prophylaxis SCDs Full Code Follows with Ayaka Novak PA-C for routine care. Patient being discharged to home with following instruction at the point of discharge. Instructions were communicated to patient's daughter Ivy over the phone. Follow-up with your PCP as an outpatient within a week time. For your new onset seizure, you have been started on Keppra twice a day. You will need to follow-up with your [place] neurology as an outpatient in 1 to 2 weeks time upon discharge. Avoid driving until cleared by your neurology as an outpatient. For UTI, you will be discharged on antibiotics, complete the course. Follow-up with your primary care physician for the final culture results of your urine in 3-5 days to ensure that you are appropriately being treated. Take your medications as prescribed. Total Time Total Time Spent Total Time Spent (In Minutes): Likely focal seizure Status post MINE CAPTAIN shunt History of glioblastoma status postsurgery UTI Discharge Plan Discharge Items Patient Disposition: Home - Self-Care Reason For Visit: SEIZURE Discharge Diagnosis: Likely focal seizure Status post MINE CAPTAIN shunt History of glioblastoma status postsurgery UTI Activity: Resume your previous activity Activity Comment: No Driving. Non-emergency contact: Primary Care Provider Call non-emergency contact if: you have any medication questions Follow-up/Referrals: Ayaka Novak PA-C [Primary Care Provider] - Diet: Regular Addtl Attending Provider Instructions: Follow-up with your PCP as an outpatient within a week time. For your new onset seizure, you have been started on Keppra twice a day. You will need to follow-up with your [place] neurology as an outpatient in 1 to 2 weeks time upon discharge. Avoid driving until cleared by your neurology as an outpatient. For UTI, you will be discharged on antibiotics, complete the course. Follow-up with your primary care physician for the final culture results of your urine in 3-5 days to ensure that you are appropriately being treated. Take your medications as prescribed. Pending Studies at Discharge: Yes (Admitting blood culture and next day's Urine culture.) Stand-Alone Forms: My [facility] [employer]ds[employer], Smoking Cessation Medications and DC Order Prescriptions: New levetiracetam [Keppra] 500 mg Tablet 500 mg PO BID Qty: 60 RF: 0 nitrofurantoin macrocrystal 100 mg capsule 100 mg PO Q12H 5 Days Qty: 10 RF: 0 Continued acetaminophen [Tylenol] 325 mg Tablet 650 mg PO DIRECTED PRN (Reason: Pain) RF: 0 carvedilol 6.25 mg tablet 6.25 mg PO BID RF: 0 amlodipine 2.5 mg tablet 2.5 mg PO DAILY RF: 0 citalopram 20 mg tablet 20 mg PO DAILY RF: 0 docusate sodium 100 mg Capsule 100 mg PO BID PRN (Reason: Constipation) RF: 0 gabapentin 100 mg capsule 100 mg PO HS RF: 0 oxycodone 5 mg tablet 5 mg PO Q8H PRN (Reason: Pain) RF: 0 Discharge Orders: Discharge Order (Routine); Ordered 05/02/22 Ordered By: Rani Chowdhury Admission Data Admit Date/Time: 04/30/22 18:43 Attending Provider: Rani Chowdhury Admit Provider: Jackie Zavala I. Primary Care Provider: Ayaka Novak Other Providers: Jackie Zavala I. ; Liu Allen
== END 2022-05-02 13:02 | disposition home or self-care (01) | DRG 101 ==
LOC: ED 15:22 → 2S 18:43 → SUATTDRO 18:43 → 2S 20:30